=== PATIENT | female | born 1995 ===

== ENCOUNTER 2025-02-08 18:39 | Emergency (ER) | payer BC, SELFPAY ==
--- NOTE | 2025-02-08 | ECG_ITS ---
Test Reason : CHEST PAIN Blood Pressure : */* mmHG Vent. Rate : 84 BPM Atrial Rate : 84 BPM P-R Int : 132 ms QRS Dur : 82 ms QT Int : 360 ms P-R-T Axes : * 165 141 degrees QTcB Int : 425 ms Sinus rhythm with occasional Premature ventricular complexes Right axis deviation Abnormal ECG No previous ECGs available Referred By: Generic ED Physician Electronically Signed By: LILLY HILL MD
--- NOTE | ~2025-02-08 | XR_ITS ---
CLINICAL HISTORY: CP 2 view chest x-ray Comparison: None provided Findings: No consolidation or effusion. Normal size heart. No acute fracture. IMPRESSION: 1. No acute findings. This document has been electronically signed by: Kevin Ding MD on 02/08/2025 19:34:03
[2025-02-08 19:01] VITALS: BP 119/67; PULSE 82; RESP 18; TEMP 36.8; O2SAT 100; BMI 24.2
--- NOTE | 2025-02-08 19:01 | ED_ITS ---
HPI - Chest Pain General Chief Complaint: Chest Pain Stated Complaint: Chest pain X 3 days/Tachycardic Time Seen by Provider: 02/08/25 20:44 Source: patient Limitations: no limitations History of Present Illness ED Provider: Shoshana Palmer PA-C HPI narrative: 29-year-old female who is otherwise healthy presents with multiple complaints. Over the past 3 days, patient has been having substernal chest discomfort with radiation to the right upper extremity. Associated paresthesia of right upper and right lower extremity at times. Patient also has been having palpitations. Denies recent illness, nausea vomiting diarrhea or fever. Denies history of anxiety. Patient does have numerous emotional stressors. Related Data Allergies Allergy/AdvReac Type Severity Reaction Status Date / Time No Known Allergies (No Known Allergy Verified 02/08/25 19:05 Allergies*) Review of Systems 2 Review of Systems: Yes all other systems are reviewed and are negative Constitutional: Constitutional: Denies fatigue and Denies fever(s) Cardiovascular: Cardiovascular: Reports chest pain, Reports palpitations and Denies dyspnea Respiratory: Respiratory: Denies cough and Denies dyspnea Gastrointestinal: Gastrointestinal: Denies abdominal pain, Denies diarrhea, Denies nausea and Denies vomiting Psychiatric: Psychiatric: Reports anxiety Endocrine: Endocrine: Denies fatigue and Reports palpitations PMFSH Past Medical History Attestation statement: The following information was validated with the patient. Social History Social History Advance Directives: No Advance Directives Information Provided: No Physical Exam 2 Vital Signs: Vital Signs: Last Vital Signs Temp 97.9 F 02/08/25 19:44 Pulse 90 02/08/25 20:22 Resp 12 02/08/25 20:22 BP 127/67 02/08/25 20:22 Pulse Ox 100 02/08/25 20:22 O2 Del Method Room Air 02/08/25 20:22 BMI result Body Mass Index 24.2 Const: Other: Alert Orientation/consciousness: patient oriented x3 Resp: Effort & Inspection: normal respiratory effort Cardio: Other: normal peripheral perfusion Skin: Other: warm dry no rash Neuro: General: patient oriented x3, gait normal, no focal motor deficits and CN's II-XI intact bilaterally Psych: Other: cooperative, anxious Course Course Course Narrative: This is an RME: Additional HPI, ROS, PE not included below will be deferred to primary provider. RME assessment and note performed by: Ynes Diana PA-C This is a [id number]-female, with no known medical problems, who presents to the ER with complaints of chest pain x 3 days, palpitations and right arm numbness since today. Reports some shortness of breath. Reports that she moves her daughter over to her bed and unsure if this caused her pain. Pt well appearing under no acute distress. Plan: Labs, EKG, CXR, further ER eval needed Medical Decision Making Medical Decision Making MDM Narrative: 29-year-old female who is otherwise healthy presents with multiple complaints. Over the past 3 days, patient has been having substernal chest discomfort with radiation to the right upper extremity. Associated paresthesia of right upper and right lower extremity at times. Patient also has been having palpitations. Denies recent illness, nausea vomiting diarrhea or fever. Denies history of anxiety. Patient does have numerous emotional stressors. problem: Undiagnosed anxiety History: Per patient I have considered the following differential diagnoses: Anxiety/ panic attack, ACS, palpitations, dehydration, electrolyte abnormality, anemia Plan: ACS was considered, the patient does have chest discomfort, screening labs including cardiac enzymes EKG and chest x-ray obtained, to note her heart score is 0. In regard to the palpitations she is legitimately having PVCs, we will send with home care instructions. I do think her emotional stress is triggering her chest discomfort and paresthesia, she does appear to be an anxious individual. I have independently reviewed the following tests: Labs: no leukocytosis, not anemic, no electrolyte abnormality, troponin less than 2.7, not , viral panel negative EKG:Sinus rhythm rate 84 with PVCs, no ischemic changes, QTC 425 Chest x-ray: Findings: No consolidation or effusion. Normal size heart. No acute fracture. IMPRESSION: 1. No acute findings. Differential Diagnosis Differential Diagnoses: The differential diagnosis associated with the presentation includes see medical decision-making Admission/Observation Consideration of admission/observation: Escalation of care including admission/observation considered not applicable Lab Data MDM Lab Attestation statement: I reviewed the patient's lab results. 02/08/25 19:17 02/08/25 19:17 Labs: Lab Results 02/08/25 Range/Units 19:17 WBC 6.2 (4.8-10.8) X10*3/uL RBC 4.82 (4.20-5.50) X10*6/uL Hgb 9.5 L (12.0-16.0) g/dl Hct 32.2 L (37.0-47.0) % MCV 66.8 L (80.0-98.0) fL MCH 19.7 L (27.0-33.0) pg MCHC 29.5 L (31.0-35.0) g/dl RDW 18.8 H (11.0-16.0) % Plt Count 289 (160-400) X10*3/uL MPV 10.2 (9.4-12.3) fL Immature Gran % (Auto) 0.2 (0.0-0.4) % Neut % (Auto) 55.3 (45-73) % Lymph % (Auto) 32.6 (20-40) % [place] % (Auto) 7.9 (2-11) % Eos % (Auto) 3.4 (0-4) % Baso % (Auto) 0.6 (0-2) % Lymph # (Auto) 2.0 (1.2-4.9) X10*3/uL [place] # (Auto) 0.5 (0.1-1.2) X10*3/uL Eos # (Auto) 0.2 (0.0-0.4) X10*3/uL Baso # (Auto) 0.0 (0.0-0.2) X10*3/uL Abs Immat Gran (auto) 0.01 (0.00-0.03) X10*3/uL Absolute Neuts (auto) 3.4 (2.0-8.3) x10*3/uL Absolute Nucleated RBC 0.000 (0.0-0.012) X10*3/uL Nucleated RBC % (auto) 0.0 (0.0-0.2) /100WBC Sodium 138 (135-145) mmol/L Potassium 3.6 (3.3-5.1) mmol/L Chloride 109 H (96-108) mmol/L Carbon Dioxide 22 (22-29) mmol/L Anion Gap 11 L (12-20) BUN 9 (9-16) mg/dL Creatinine 0.62 (0.5-1.4) mg/dL Estim Creat Clear Calc 98.9 Estimated GFR > 60 Random Glucose 90 (60-115) mg/dL Calcium 9.0 (8.4-10.2) mg/dL Magnesium 2.0 (1.6-2.6) mg/dL Total Bilirubin 0.2 (0.0-1.0) mg/dL Direct Bilirubin < 0.2 (0.0-0.5) mg/dL AST 23 (5-31) U/L ALT 13 (0-31) U/L Alkaline Phosphatase 59 (39-117) U/L Troponin I High Sens < 2.7 (<3.5-17.0) ng/L Total Protein 7.4 (6.5-8.0) g/dL Albumin 4.5 (3.5-5.0) g/dL COVID-19 ([facility]) Negative (Negative) COVID-19 Clin Com See Note Influenza Type A ([facility]) Negative (Negative) Influenza Type B ([facility]) Negative (Negative) Influenza A & B Note See Note Independent Interpretation I performed an independent interpretation of an: EKG Radiology Impression Discussion of test interpretation with radiology: I have reviewed the radiologist's reading. Discharge Plan Discharge Clinical Impression: Atypical chest pain, Heart palpitations Patient Disposition: Home, Self-Care Instructions: Heart Palpitations (ED), Noncardiac Chest Pain (ED), Anxiety (ED) Additional Instructions: all of your screening labs including a cardiac enzymes were normal, you were tested for COVID and influenza the viral panel is negative. The chest x-ray is clear there were no concerning changes on the EKG. You are having extra beats called PVCs. See home care instructions. Make sure to avoid stimulants, alcohol can be a trigger, maintain proper hydration, drinking 96 oz of fluid a day. If your PVCs persist, and become more frequent, follow up with primary care, you will require a Holter monitor trial as an outpatient. Print Language: Romanian
[2025-02-08 19:23] LABS: Hematocrit 32.2 % (37.0-47.0); Hemoglobin 9.5 g/dl (12.0-16.0); Imm Gran Abs Auto 0.01 X10*3/uL (0.00-0.03); Imm Gran Pct Auto 0.2 % (0.0-0.4); Lymphocytes Absolute Auto 2.0 X10*3/uL (1.2-4.9); MANUAL DIFF FLAG NO; Mean Corpuscular HGB Conc 29.5 g/dl (31.0-35.0); Mean Corpuscular Hemoglobin 19.7 pg (27.0-33.0); Mean Corpuscular Volume 66.8 fL (80.0-98.0); NRBC Abs Auto 0.000 X10*3/uL (0.0-0.012); NRBC Pct Auto 0.0 /100WBC (0.0-0.2); Platelet Count 289 X10*3/uL (160-400); Red Blood Count 4.82 X10*6/uL (4.20-5.50); White Blood Count 6.2 X10*3/uL (4.8-10.8)
[2025-02-08 19:37] LABS: IDNOW Serial# 55D5AD1C
[2025-02-08 19:38] LABS: Influenza B2 Negative (Negative)
[2025-02-08 19:40] LABS: Alanine Aminotransferase 13 U/L (0-31); Albumin Level 4.5 g/dL (3.5-5.0); Alkaline Phosphatase 59 U/L (39-117); Anion Gap 11 (12-20); Aspartate Amino Transferase 23 U/L (5-31); Blood Urea Nitrogen 9 mg/dL (9-16); Calcium 9.0 mg/dL (8.4-10.2); Carbon Dioxide 22 mmol/L (22-29); Chloride 109 mmol/L (96-108); Creatinine Clr Calc Pharmacy 98.9; Estimated Glomerular Filt Rate > 60; Magnesium 2.0 mg/dL (1.6-2.6); Potassium 3.6 mmol/L (3.3-5.1); Sodium 138 mmol/L (135-145); Total Protein 7.4 g/dL (6.5-8.0)
[2025-02-08 19:42] LABS: COVID-19 Test Negative (Negative); IDNOW Serial# 58CA691E
[2025-02-08 19:44] VITALS: BP 127/67; PULSE 80; RESP 16; TEMP 36.6; O2SAT 100
[2025-02-08 19:50] LABS: Troponin-I High Sensitivity < 2.7 ng/L (<3.5-17.0)
[2025-02-08 20:22] VITALS: BP 127/67; PULSE 90; RESP 12; O2SAT 100
[2025-02-08 22:11] VITALS: BP 116/62; PULSE 84; RESP 16; TEMP 36.8; O2SAT 97
--- NOTE | 2025-02-08 22:16 | PC.NURSE ---
reviewed discharge instructions with pt. pt verbalized understanding, no sign of distress. Notified Primary nurse.
[2025-02-08 22:17] VITALS: BP 116/62; PULSE 84; RESP 16; TEMP 36.8; O2SAT 97
== END 2025-02-08 22:18 | disposition home or self-care (01) ==
PROVIDERS: Physician Assistant Medical; Emergency Provider Emergency Medicine
DX: R07.89 Other chest pain (principal); R00.2 Palpitations
CPT/HCPCS: 71046; 80048; 80076; 83735; 84484; 85025; 87502; 87635; 93005; 99283; 99285

== ENCOUNTER → 2025-02-08 18:44 | Outpatient (BNV) | payer BC, SELFPAY | PROVIDERS: Emergency Provider Emergency Medicine; Visit Provider Internal Medicine Cardiovascular Disease | DX: I49.3 Ventricular premature depolarization (principal) | CPT/HCPCS: 93010 ==

== ENCOUNTER → 2025-02-08 19:03 | Outpatient (BNV) | payer BC, SELFPAY | PROVIDERS: Visit Provider Radiology Diagnostic Radiology | DX: R07.9 Chest pain, unspecified (principal) | CPT/HCPCS: 71046 ==

== ENCOUNTER 2025-02-11 17:00 | Emergency (ER) | payer BC, SELFPAY ==
--- NOTE | ~2025-02-11 | XR_ITS ---
CLINICAL HISTORY: chest pain 2 views of the chest. Comparison 02/08/2025. Findings: Heart size is normal. There is no consolidation. No pleural effusion is seen. Impression: No consolidation. This document has been electronically signed by: Clifton Stone MD on 02/11/2025 17:37:06
--- NOTE | 2025-02-11 17:02 | ECG_ITS ---
Test Reason : CP Blood Pressure : */* mmHG Vent. Rate : 77 BPM Atrial Rate : 77 BPM P-R Int : 134 ms QRS Dur : 92 ms QT Int : 358 ms P-R-T Axes : 24 12 28 degrees QTcB Int : 405 ms Sinus rhythm with sinus arrhythmia with occasional Premature ventricular complexes Otherwise normal ECG When compared with ECG of 08-Feb-2025 18:44, QRS axis Shifted left T wave inversion no longer evident in Lateral leads Referred By: Leanne Jung Electronically Signed By: Slade Hoyt
[2025-02-11 17:10] VITALS: BP 134/69; PULSE 88; RESP 16; TEMP 36.6; O2SAT 100; BMI 21.9
--- NOTE | 2025-02-11 17:13 | ED_ITS ---
HPI - General Adult General Chief complaint: Chest Pain Stated complaint: chect pain Time Seen by Provider: 02/11/25 20:20 Source: patient, RN notes reviewed and old records reviewed Mode of arrival: ambulatory Limitations: no limitations History of Present Illness ED Provider: Joseph ALMANZAR narrative: 30-year-old female presents for evaluation of continued chest pain and palpitations. She was seen here 3 days ago for similar complaint. She had labs, chest x-ray, EKG. She was ultimately discharged home with instructions to rest. She did have notable PVCs on her EKG She has no medical history. She reports only mild anxiety. She states that she continues to have intermittent stabbing pains on the right side of her chest that now radiates to left side of her chest pain She also occasionally has pain to her extremities She additionally reports occasional pains in the back of her head pain Denies any fevers, chills, cough, shortness of breath pain She has some nausea with no vomiting. She has no other complaints or concerns at this time Related Data Allergies Allergy/AdvReac Type Severity Reaction Status Date / Time No Known Allergies (No Known Allergy Verified 02/11/25 17:14 Allergies*) Review of Systems 2 Constitutional: Constitutional: Denies body ache(s), Denies chills, Denies fever(s) and Denies headache(s) Eyes: Eyes: Denies blind spots and Denies blurry vision ENT: Denies vertigo, Denies dizziness and Denies headache(s) Cardiovascular: Cardiovascular: Reports chest pain and Denies dyspnea on exertion Respiratory: Respiratory: Denies cough and Denies dyspnea on exertion Gastrointestinal: Gastrointestinal: Denies abdominal pain, Denies nausea and Denies vomiting Musculoskeletal: Musculoskeletal: Denies back pain, Denies numbness, Denies stiffness and Denies tingling Integumentary/Breasts: Skin/Breast: Denies rash Neurologic: Denies vertigo, Denies dizziness, Denies headache(s), Denies numbness and Denies tingling Psychiatric: Psychiatric: Denies anxiety PMFSH Social History Social History Advance Directives: No Advance Directives Information Provided: No Do you have a plan to hurt others: No Plan Physical Exam ED Vital Signs: Vital Signs - 24 hr 02/11/25 17:10 Temperature 97.9 F Pulse Rate 88 Respiratory Rate 16 Blood Pressure 134/69 Pulse Oximetry 100 Oxygen Delivery Method Room Air BMI result Body Mass Index 21.9 Const General: healthy appearing, comfortable, no acute distress, alert and awake Nutritional Appearance: well nourished Orientation/consciousness: patient oriented x3 HENMT Head: Yes normocephalic and Yes atraumatic Eyes Eyelids: Yes eyelids normal Conjunctivae: conjunctivae normal Sclerae: sclerae normal Corneas: corneas normal Pupils: Equal, round and reactive pupils present EOM: EOMs intact bilaterally Neck Neck: Yes full ROM Resp Effort & Inspection: normal respiratory effort, able to speak in complete sentences, no audible wheezes and not labored Auscultation: clear to auscultation bilaterally Cardio Rate: regular rate Rhythm: regular rhythm GI Inspection: No distended Palpation (GI): Soft to palpation, not firm, nontender, no guarding and not rigid Skin General skin exam: elasticity normal Neuro General: patient oriented x3 Cranial nerves: Yes Equal, round and reactive pupils present and Yes Bilaterally intact EOM present Cognition (Neuro): normal cognition Extrem Other: Moving all extremities well without any obvious deformities Course Course Course Narrative: Rapid medical examination performed in triage by Leanne Jung PA-C. Patient is a 30 year old assigned female at presenting to the emergency department with right sided chest pain and nausea. Detailed physical exam and review of systems are deferred to the bandage winding machine operator. EKG, labs, imaging, and swabs ordered. Patient placed back in the waiting room pending room availability and results. Medical Decision Making Medical Decision Making MDM Narrative: 30-year-old female presents for evaluation of continued chest pain and palpitations. The patient's vital signs are stable, she is not hypoxic or tachycardic, EKG is nonischemic. She still does have a PVC noted. She is not . She has a mild anemia consistent with her baseline. Her hemoglobin today is 9.3 and was 9.53 days ago. This is a microcytic anemia and likely due to heavy menstrual flow. She has no leukocytosis or evidence of infectious process. Chemistries are within normal limits, troponin is again negative. The patient rules out for ACS with a negative troponin and nonischemic EKG. She has a heart score of 0. She has an extended with a low risk for pulmonary embolism due to her PERC score being 0. Her pain may be related to anxiety. She could have some gastritis as she reports having had this when she was . The patient be discharged with a Cardiology referral, she may benefit from a Holter monitor. She is stable for discharge however. Chest x-ray is also clear without evidence of pneumonia, pleural effusion or cardiomegaly Differential Diagnosis Differential Diagnoses: The differential diagnosis associated with the presentation includes Chest pain Palpitations ACS PE CHF Pneumonia Lab Data MDM Lab Attestation statement: I reviewed the patient's lab results. As above 02/11/25 17:26 02/11/25 17:26 Labs: Lab Results 02/11/25 Range/Units 17:26 WBC 6.8 (4.8-10.8) X10*3/uL RBC 4.77 (4.20-5.50) X10*6/uL Hgb 9.3 L (12.0-16.0) g/dl Hct 32.6 L (37.0-47.0) % MCV 68.3 L (80.0-98.0) fL MCH 19.5 L (27.0-33.0) pg MCHC 28.5 L (31.0-35.0) g/dl RDW 18.6 H (11.0-16.0) % Plt Count 242 (160-400) X10*3/uL MPV 10.8 (9.4-12.3) fL Immature Gran % (Auto) 0.1 (0.0-0.4) % Neut % (Auto) 66.7 (45-73) % Lymph % (Auto) 24.3 (20-40) % [place] % (Auto) 6.2 (2-11) % Eos % (Auto) 1.8 (0-4) % Baso % (Auto) 0.9 (0-2) % Lymph # (Auto) 1.7 (1.2-4.9) X10*3/uL [place] # (Auto) 0.4 (0.1-1.2) X10*3/uL Eos # (Auto) 0.1 (0.0-0.4) X10*3/uL Baso # (Auto) 0.1 (0.0-0.2) X10*3/uL Abs Immat Gran (auto) 0.01 (0.00-0.03) X10*3/uL Absolute Neuts (auto) 4.6 (2.0-8.3) x10*3/uL Absolute Nucleated RBC 0.000 (0.0-0.012) X10*3/uL Nucleated RBC % (auto) 0.0 (0.0-0.2) /100WBC Smear Tech's Comments VERIFIED PT 12.1 (10.9-12.4) SEC INR 1.1 (0.9-1.1) Sodium 140 (135-145) mmol/L Potassium 3.7 (3.3-5.1) mmol/L Chloride 108 (96-108) mmol/L Carbon Dioxide 25 (22-29) mmol/L Anion Gap 11 L (12-20) BUN 12 (9-16) mg/dL Creatinine 0.60 (0.5-1.4) mg/dL Estim Creat Clear Calc 91.8 Estimated GFR > 60 Random Glucose 99 (60-115) mg/dL Calcium 9.0 (8.4-10.2) mg/dL Magnesium 1.8 (1.6-2.6) mg/dL Total Bilirubin 0.4 (0.0-1.0) mg/dL AST 19 (5-31) U/L ALT 14 (0-31) U/L Alkaline Phosphatase 57 (39-117) U/L Troponin I High Sens < 2.7 (<3.5-17.0) ng/L Total Protein 7.5 (6.5-8.0) g/dL Albumin 4.6 (3.5-5.0) g/dL Beta HCG, Quant < 2 mIU/mL Independent Interpretation I performed an independent interpretation of an: EKG (Sinus rhythm with PVC. No ST segment elevation or depression) and Plain X-Ray Interpretation: Agree with Radiology interpretation Radiology Impression Discussion of test interpretation with radiology: I have reviewed the radiologist's reading. Radiologist Impression: CLINICAL HISTORY: chest pain 2 views of the chest. Comparison 02/08/2025. Findings: Heart size is normal. There is no consolidation. No pleural effusion is seen. Impression: No consolidation. This document has been electronically signed by: Clifton Stone MD on 02/11/2025 17:37:06 Discharge Plan Discharge Clinical Impression: Chest pain Patient Disposition: Home, Self-Care Instructions: Chest Pain (ED) Additional Instructions: Your workup in the ER today was reassuring. This includes your EKG, repeat chest x-ray and labs. You did not have a heart attack. You did still have a PVC or premature beat on your EKG. I recommend that you follow up with Cardiology. You may benefit from an outpatient Holter monitor or additional cardiac testing You may use ibuprofen or Tylenol for your pain. Follow up with your primary doctor Referrals: [facility] [Provider Group] Referral Note: palpitations, chest pain Print Language: Polish
[2025-02-11 17:35] LABS: Hemoglobin 9.3 g/dl (12.0-16.0); NRBC Abs Auto 0.000 X10*3/uL (0.0-0.012); NRBC Pct Auto 0.0 /100WBC (0.0-0.2); SCAN SMEAR FLAG 1
[2025-02-11 17:37] LABS: Hematocrit 32.6 % (37.0-47.0); Imm Gran Abs Auto 0.01 X10*3/uL (0.00-0.03); Imm Gran Pct Auto 0.1 % (0.0-0.4); Lymphocytes Absolute Auto 1.7 X10*3/uL (1.2-4.9); MANUAL DIFF FLAG SCAN; Mean Corpuscular HGB Conc 28.5 g/dl (31.0-35.0); Mean Corpuscular Hemoglobin 19.5 pg (27.0-33.0); Mean Corpuscular Volume 68.3 fL (80.0-98.0); Platelet Count 242 X10*3/uL (160-400); Red Blood Count 4.77 X10*6/uL (4.20-5.50); White Blood Count 6.8 X10*3/uL (4.8-10.8)
[2025-02-11 17:39] LABS: INTERNATIONAL NORM RATIO 1.1 (0.9-1.1); Prothrombin Time 12.1 SEC (10.9-12.4)
[2025-02-11 17:54] LABS: Alanine Aminotransferase 14 U/L (0-31); Albumin Level 4.6 g/dL (3.5-5.0); Alkaline Phosphatase 57 U/L (39-117); Anion Gap 11 (12-20); Aspartate Amino Transferase 19 U/L (5-31); Blood Urea Nitrogen 12 mg/dL (9-16); Calcium 9.0 mg/dL (8.4-10.2); Carbon Dioxide 25 mmol/L (22-29); Chloride 108 mmol/L (96-108); Creatinine Clr Calc Pharmacy 91.8; Estimated Glomerular Filt Rate > 60; Magnesium 1.8 mg/dL (1.6-2.6); Potassium 3.7 mmol/L (3.3-5.1); Sodium 140 mmol/L (135-145); Total Protein 7.5 g/dL (6.5-8.0)
[2025-02-11 17:56] LABS: Troponin-I High Sensitivity < 2.7 ng/L (<3.5-17.0)
[2025-02-11 18:00] LABS: PLT ABN DIST 1
--- OUTSIDE RECORDS SUMMARY | 2025-02-11 20:45 | XMS_ITS | Clinical Summary ---
Author Organization [facility] Address [address] [place] [address] Care Team Providers Care Gas Meter Reader Name Role Phone Stella Flaherty MD Primary Care Provider [phone] Surgical History Surgery Date Site/Laterality Comments SECTION 02/25/2019 PROCEDURE: HISTORICAL DELIVERY; COMMENT: [facility]; [place], [place] Medical History Medical History Date Comments Anxiety and depression DX:Anxiet y and depression Family History Medical History Relation Name Comments No Known Problems Father Heart attack Maternal Grandfather Arthritis Mother Hypertension Mother No Known Problems Sister Other: Step-son Son Chris Relation Name Status Comments Daughter Nae Alive Father Alive Maternal Grandfather Alive Maternal Grandmother Alive Mother Alive Paternal Grandfather Paternal Grandmother Alive Sister Alive Son Chris Alive Social History Tobacco Use Types Packs/Day Years Used Date Smoking Tobacco: Never Smokeless Tobacco: Never Alcohol Use Standard Drinks/Week Comments No 0 (1 standard drink = 0.6 oz pur e alcohol) Comments Unknown Sex and Gender Information Value Date Recorded Sex Assigned at Not on file Legal Sex Female 3:54 PM EST Gender Identity Not on file Sexual Orientation Not on file Obstetrics History Last Filed Vital Signs Vital Sign Reading Time Taken Comments Blood Pressure 96/59 10/29/2021 9:01 AM EDT Pulse 90 10/29/2021 9:01 AM EDT Temperature - - Respiratory Rate - - Oxygen Saturation - - Inhaled Oxygen Concentration - - Weight 59 kg (130 lb) 10/29/2021 9:01 AM EDT Height 149.9 cm (4' 11 ) 10/29/2021 9:01 AM EDT Body Mass Index 26.26 10/29/2021 9:01 AM EDT Plan of Treatment Health Maintenance Due Date Last Done Comments Hepatitis B Vaccines (1 of 3 - 19+ 3-dose series) 02/11/2012 HPV Vaccines (1 - 3-dose SCD M series) 02/11/2020 HIV Screening 04/10/2022 Hepatitis C Screening 04/10/2022 Social Influencers of Health Screening 04/10/2022 Cervical Cancer Screening: P ap Smear 12/02/2023 12/01/2020, 03/30/2018 Depression Screening 05/02/2024 COVID-19 Vaccine (2 - 2024-2 6 season) 2024 10/29/2020 Influenza Vaccine (#1) 2024 03/03/2018 DTaP,Tdap,and Td Vaccines (3 - Td or Tdap) 03/31/2031 03/31/2021, 12/19/2018 RSV Immunization Adult Patients (1 - 1-dose 75+ series) 02/11/2068 HIB Vaccines Aged Out No longer eligi ble based on patient's age to complete this topic Hepatitis A Vaccines Aged Out No long er eligible based on patient's age to complete this topic IPV Vaccines Aged Out No longer eligi ble based on patient's age to complete this topic MMR Vaccines Aged Out No longer eligi ble based on patient's age to complete this topic Meningococcal ACWY Vaccine Aged Out N o longer eligible based on patient's age to complete this topic Meningococcal B Vaccine Aged Out No l onger eligible based on patient's age to complete this topic Pneumococcal Vaccine: Pediatrics (0 to 5 Years) and At-Risk Patients (6 to 49 Years) Aged Out No longer eligible b ased on patient's age to complete this topic RSV Immunization Patients Under 20 months Aged Out No longer eligible b ased on patient's age to complete this topic Varicella Vaccines Aged Out No longer eligible based on patient's age to complete this topic Procedures Procedure Name Priority Date/Time Associated Diagnosis Comments PAP SMEAR Routine 12/01/2020 from Last 3 Months or Most Recently Relevant to Health Maintenance Results * Pap smear (12/01/2020) 12/01/2020 Narrative HISTORICAL TESTING LAB RESULTING AGENCY - 12/15/2020 9:35 AM EDT [id number] THINPREP PAP AND CELL BLOCK: NEGATIVE FOR SQUAMOUS INTRAEPITHELIAL LESION AND MALIGNANCY . MARGARET RIDLEY , JAMIE(ASCP) (CASE SCREENED 12 09 2020) MADELYN SCHAFFER M.D. , PATHOLOGIST (CASE ELECTRONICALLY SIGNED 12 10 2020) ADEQUACY: SATISFACTORY ENDOCERVICAL/TRANSFORMATION ZONE COMPONENT ABSENT. SOURCE: THINPREP PAP HPV IF ASCUS, MANUAL CLINICAL INFORMATION: HPV IF DIAGNOSIS OF ASCUS. LMP 09/07/20 , CELL BLOCK 12/02/20 Z12.4 Lucila Silverman CN LAB CYTOLOGY ORDERABLES Final Result HISTORICAL TESTING LAB RESULTING AGENCY from Last 3 Months or Most Recently Relevant to Health Maintenance Care Teams Gas Meter Reader Relationship Specialty Start Date End Date Stella Flaherty MD PCP - General 05/05/22
--- OUTSIDE RECORDS SUMMARY | 2025-02-11 20:45 | XMS_ITS | Clinical Summary ---
Author Organization [facility] Address [address] [address] Phone Care Team Providers Care Fusing Machine Operator Name Role Phone Pcp, Unknown Primary Care Provider Unavailabl e Allergies No known active allergies Medications No known medications Active Problems No known active problems Social History Tobacco Use Types Packs/Day Years Used Date Smoking Tobacco: Never Assessed Education Answer Date Recorded Are you interested in more education? Not on rosa e 12/01/2023 Are you concerned about learning? Not on file 12/01/2023 No 12/01/2023 No 12/01/2023 Digital Access Answer Date Recorded No 12/01/2023 No 12/01/2023 Reliable internet access at home? Not on file 12/01/2023 Device with a working camera? Not on file Comments Unknown Sex and Gender Information Value Date Recorded Sex Assigned at Not on file Legal Sex Female 8:24 AM EDT Gender Identity Not on file Sexual Orientation Not on file Last Filed Vital Signs Vital Sign Reading Time Taken Comments Blood Pressure 119/77 12/01/2023 10:18 AM EDT Pulse 72 12/01/2023 10:18 AM EDT Temperature 36.8 C (98.3 F) 12/01/2023 10:18 AM EDT Respiratory Rate 18 12/01/2023 10:18 AM EDT Oxygen Saturation 100% 12/01/2023 10:18 AM EDT Inhaled Oxygen Concentration - - Weight - - Height - - Body Mass Index - - Plan of Treatment Health Maintenance Due Date Last Done Comments DEPRESSION SCREENING 2005 SMOKING Hx and SMOKELESS TOBACCO SCREENING 2006 HEPATITIS C SCREENING 2011 HIV ONE-TIME SCREENING (18-6 5 YEARS) 2011 PAP SMEAR 12/02/2023 12/01/2020 INFLUENZA VACCINE (#1) 2024 COVID-19 VACCINE (2024-2 6 season) 2024 Adult Td,Tdap Booster 03/31/2031 03/31/2021 , 12/19/2018 HEPATITIS A VACCINES Aged Out No long er eligible based on patient's age to complete this topic HIB VACCINES Aged Out No longer eligi ble based on patient's age to complete this topic MENINGOCOCCAL VACCINES (ACWY) Aged Out No longer eligible based on patient's age to complete this topic MENINGOCOCCAL VACCINES (B) Aged Out N o longer eligible based on patient's age to complete this topic PNEUMOCOCCAL VACCINES (0-49 years) Aged Out No longer eligible b ased on patient's age to complete this topic Medical Devices Not on file Insurance [facility] [place] [address] [address] [place] [address] [place] [address] Member Subscriber Plan / Payer (Ef fective 2023-) Name:Virgie Lopez Relation to Subscriber:Self Name:Virgie Lopez Payer ID:[id number] (NAIC) Type:HMO Address: [facility] [id number] [place] [id number] Care Teams Fusing Machine Operator Relationship Specialty Start Date End Date Pcp, Unknown PCP - General 12/01/23 Additional Source Comments The information contained in this document represents components of the legal health record. It is not the complete legal health record.[facility]
[2025-02-11 21:12] VITALS: BP 110/70; PULSE 74; RESP 16; TEMP 36.8; O2SAT 96
[2025-02-11 21:13] VITALS: BP 110/70; PULSE 74; RESP 16; TEMP 36.8; O2SAT 96
== END 2025-02-11 21:15 | disposition home or self-care (01) ==
PROVIDERS: Physician Assistant Medical; Emergency Provider Emergency Medicine Emergency Medical Services
DX: R07.9 Chest pain, unspecified (principal); R00.2 Palpitations; I49.3 Ventricular premature depolarization; D50.9 Iron deficiency anemia, unspecified
CPT/HCPCS: 36415; 71046; 80053; 83735; 84484; 84702; 85025; 85610; 93005; 99283; 99284

== ENCOUNTER → 2025-02-11 17:02 | Outpatient (BNV) | payer BC, SELFPAY | PROVIDERS: Emergency Provider Emergency Medicine Emergency Medical Services; Visit Provider Internal Medicine Cardiovascular Disease | DX: I49.3 Ventricular premature depolarization (principal) | CPT/HCPCS: 93010 ==

== ENCOUNTER → 2025-02-11 17:14 | Outpatient (BNV) | payer BC, SELFPAY | PROVIDERS: Visit Provider Radiology Diagnostic Radiology | DX: R07.9 Chest pain, unspecified (principal) | CPT/HCPCS: 71046 ==

== ENCOUNTER 2025-02-15 09:02 | Outpatient (AMB) | payer BC, SELFPAY ==
--- NOTE | 2025-02-15 09:09 | MHC.PC.OV ---
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 Accompanied by: Self / Same As Patient Allergies No Known Allergies (No Known Allergies*) Allergy (Verified 02/15/25 09:10) Medication List - Last Reconciled 02/15/25 by Singh Live MD No Known Home Meds Tobacco use date assessed: 02/15/25 Dental Screening Dental Screen Date: 02/15/25 Did you have a dental visit in the last 12 months?: No Did you have a dental problem in the last 6 months where you did not have access to dental care?: No Was dental information given to patient?: No HPI HPI Comments History of Present Illness Details The patient is a 30-year-old female presenting to [facility]. The patient reports symptoms of chest pain in the past. Associated symptoms included right arm numbness, dyspnea, dizziness, and palpitations, prompting two ER visits where cardiac causes were ruled out. The patient has a history of anemia, with a current hemoglobin level of 9.5 g/dL, likely exacerbated by heavy menstrual bleeding. She reports fatigue, tingling sensations, and lightheadedness. The patient has experienced significant life changes, including a divorce and raising two children, contributing to past episodes of depression and anxiety. She currently manages stress with therapy and reports a generally stable mood. Dietary habits include irregular meals and inadequate hydration, potentially impacting her anemia and overall health. She denies any gastrointestinal issues outside of menstrual-related bloating. Questionnaire PHQ-9 Over the last 2 weeks, how often have you been bothered by any of the following problems? 1. Little interest or pleasure in doing things: not at all 2. Feeling down, depressed, or hopeless: not at all 3. Trouble falling or staying asleep, or sleeping too much: not at all 4. Feeling tired or having little energy: several days 5. Poor appetite or overeating: not at all 6. Feeling bad about yourself - or that you are a failure or have let yourself or your family down: not at all 7. Trouble concentrating on things, such as reading the newspaper or watching television: not at all 8. Moving or speaking so slowly that other people could have noticed. Or the opposite - being so fidgety or restless that you have been moving around a lot more than usual: not at all 9. Thoughts that you would be better off or of hurting yourself in some way: not at all Total score: 1 Depression Screening Interpretation: Negative Depression Screening Done: Yes Source: Developed by Drs. Tobi Wang, Keily Altamirano, Marcial Yin and colleagues, with an educational luis fernando from [employer]. Thrive Questionnaire I am a: Patient What is your living situation today?: I have a steady place to live Within the past 12 months, did the food you bought not last and you didn't have the money to get more?: Never true Within the past 12 months, did you worry whether your food would run out before you got money to buy more?: Sometimes True Do you have trouble paying for medicines?: No Do you have trouble getting transportation to medical appointments?: No Do you have trouble paying your heating and electricity bill?: No Do you have trouble taking care of your child, family member or friend?: No Do you have trouble with day-to-day activities such as bathing, preparing meals, shopping, managing finances, etc.?: No Are you currently unemployed and looking for a job?: No Are you interested in more education?: No Please select the resources that you would like help with: None Currently or been in a relationship where the following occur: I choose not to answer THRIVE Score: 1 AUDIT C Alcohol Use Questionnaire (AUDIT-C) 1. How often do you have a drink containing alcohol?: Never Total Score: 0 FELIBERTO-7 AMB Questionnaire FELIBERTO-7 Feeling nervous, anxious, or on edge: 0 = Not at all Not being able to stop or control worryin = Not at all Worrying too much about different things: 0 = Not at all Trouble relaxin = Not at all Being so restless that it is hard to sit still: 0 = Not at all Becoming easily annoyed or irritable: 0 = Not at all Feeling afraid as if something awful might happen: 0 = Not at all Total FELIBERTO-7 score (0-4 normal; 5-9 mild; 10-14 moderate; 15-21 severe): 0 Source: Developed by Drs. Tobi Wang, Keily Altamirano, Marcial Yin and colleagues, with an educational luis fernando from [employer]. Review of Systems Const Details: Positives besides what was mentioned in HPI are in BOLD Constitutional: No Weight Change, No Fever, No Chills, No Night Sweats, No Fatigue, No Malaise ENT/Mouth: No Hearing Changes, No Ear Pain, No Nasal Congestion, No Sinus Pain, No Hoarseness, No sore throat, No Rhinorrhea, No Swallowing Difficulty Eyes: No Eye Pain, No Swelling, No Redness, No Foreign Body, No Discharge, No Vision Changes Cardiovascular: No Chest Pain, No SOB, No PND, No Dyspnea on Exertion, No Orthopnea, No Claudication, No Edema, No Palpitations Respiratory: No Cough, No Sputum, No Wheezing, No Smoke Exposure, No Dyspnea Gastrointestinal: No Nausea, No Vomiting, No Diarrhea, No Constipation, No Pain, No Heartburn, No Anorexia, No Dysphagia, No Hematochezia, No Melena, No Flatulence, No Jaundice Genitourinary: No Dysmenorrhea, No DUB, No Dyspareunia, No Dysuria, No Urinary Frequency, No Hematuria, No Urinary Incontinence, No Urgency, No Flank Pain, No Urinary Flow Changes, No Hesitancy Musculoskeletal: No Arthralgias, No Myalgias, No Joint Swelling, No Joint Stiffness, No Back Pain, No Neck Pain, No Injury History Skin: No Skin Lesions, No Pruritis, No Hair Changes, No Breast/Skin Changes, No Nipple Discharge Neuro: No Weakness, No Numbness, No Paresthesias, No Loss of Consciousness, No Syncope, No Dizziness, No Headache, No Coordination Changes, No Recent Falls Psych: No Anxiety/Panic, No Depression, No Insomnia, No Personality Changes, No Delusions, No Rumination, No SI/HI/AH/VH, No Social Issues, No Memory Changes, No Violence/Abuse Hx., No Eating Concerns Heme/Lymph: No Bruising, No Bleeding, No Transfusions History, No Lymphadenopathy Endocrine: No Polyuria, No Polydipsia, No Temperature Intolerance Physical exam (Primary Care) Vital Signs: Last Vital Signs Temp 97.3 F 02/15/25 09:10 Pulse 83 10/17/25 09:10 Resp 18 02/15/25 09:10 BP 128/66 02/15/25 09:10 Pulse Ox 95 02/15/25 09:10 Oxygen Delivery Method Room Air 02/15/25 09:10 BMI result Body Mass Index 23.0 Tobacco/Smoking Status: Tobacco use Status Tobacco use date assessed 02/15/25 02/15/25 09:17 PHQ-9: PHQ-9 Score PHQ-9: Total score 1 02/15/25 09:17 Depression Screening Interpretation: Negative Currently or been in a relationship where the following occur: I choose not to answer Const Other: Pertinent findings are in BOLD GENERAL APPEARANCE NAD, activity normal for age, well developed/ well nourished, no cyanosis, pallor, or diaphoresis. EYES lids/conjunctiva normal. EARS/NOSE/THROAT Mucous membranes moist, nares normal, lips/teeth normal uvula midline without oral pharyngeal erythema, exudate or swelling TMs normal bilaterally. No lymphangitis/lymphedema. HEAD/NECK normocephalic atraumatic, no facial trauma, neck is supple. RESPIRATORY respiratory effort normal, speaks in full sentences, no tripod position, no accessory muscle use. Lungs clear to auscultation without rhonchi, wheezes, rales CARDIAC Regular rate and rhythm, no edema. ABDOMINAL Soft, ND/NT. No evidence of fluid wave. No pulsatile masses on exam, rebound tenderness, Seay sign or pain over Mcburney's point. MUSCLES/EXTREMITIES No abnormal range of motion, no swelling. SKIN Warm, pink and dry. No rashes, dermatoses, petechiae or lesions. NEUROLOGICAL Speech is clear and appropriate. Normal level of consciousness. Gait and coordination are normal. 5/5 strength in all extremities. PSYCH Normal mood and affect. Judgement/competence is appropriate Coding Level of Care Code New Pt Level 4 (21539) New Pt Prev Care 18-39yr(35472 Diagnoses Atypical chest pain R07.89 Healthcare maintenance Z00.00 Anemia, unspecified type D64.9 Anemia type: unspecified type Time Spent (min) 30 Assessment & Plan Assessment & Plan (1) Atypical chest pain: Code(s): R07.89 - Other chest pain Category: Medical Plan: Cardiac causes were ruled out during ED visit. ED recommended the patient to see cardiology for PVC. I explained to the patient that PVC are less likely to be causing her symptoms. Cardiology referral placed since it was recommended by ED. (2) Healthcare maintenance: Code(s): Z00.00 - Encounter for general adult medical examination without abnormal findings Category: Medical Plan: CBC, CMP, Lipid panel, A1C, TSH w T4, vit D. Ordered today. Shingles 2 doses when >50 yo. NI. COVID: two doses. Completed in the past. Tdap: done in 2020. due in 2030. Flu vaccine: Declined. Colonoscopy: 45-75. due at 45. AAA: 65 -75. NI. CT lun - 80. NI. HPV: Rferral. HIV: Orderd today. HBV: Ordered today. HCV: Ordered today. Dexa: NI. Mammogram: Due at 40. (3) Anemia: Code(s): D64.9 - Anemia, unspecified Category: Medical Qualifiers: Anemia type: unspecified type Qualified Code(s): D64.9 - Anemia, unspecified Plan: - Anemia W-U: Iron profile, MMA, Homocystein, Folic acid and B12, retic count. - Referral to OBGYN for further evaluation and management of heavy menstrual bleeding - Recommended increasing intake of iron rich food such as spinach and red meat. Advised patient to check online for Iron rich food. - Patient denies any blood in the stool or in the urine. Plan I discussed with the patient the likelihood that her symptoms are related to anemia, potentially due to iron deficiency from heavy menstrual bleeding. I recommended an anemia workup and referral to an OBGYN for further evaluation. We also discussed the cardiology referral. Orders: Orders Vitamin D 25-OH (D2 and D3) Today D64.9 - Anemia, unspecified, Z00.00 - Encounter for general adult medical examination without abnormal findings TSH reflex Free T4 Today D64.9 - Anemia, unspecified, Z00.00 - Encounter for general adult medical examination without abnormal findings HIV Ab/Ag Today D64.9 - Anemia, unspecified, Z00.00 - Encounter for general adult medical examination without abnormal findings Hepatitis C Antibody Reflex Today D64.9 - Anemia, unspecified, Z00.00 - Encounter for general adult medical examination without abnormal findings Hepatitis B Surface Antibody Today D64.9 - Anemia, unspecified, Z00.00 - Encounter for general adult medical examination without abnormal findings Lipid Panel Today D64.9 - Anemia, unspecified, Z00.00 - Encounter for general adult medical examination without abnormal findings Vitamin B12 and Folate Today D64.9 - Anemia, unspecified, Z00.00 - Encounter for general adult medical examination without abnormal findings IRON PROFILE Today D64.9 - Anemia, unspecified, Z00.00 - Encounter for general adult medical examination without abnormal findings Hepatitis B Surface Antigen Today D64.9 - Anemia, unspecified, Z00.00 - Encounter for general adult medical examination without abnormal findings Hemoglobin A1c Today D64.9 - Anemia, unspecified, Z00.00 - Encounter for general adult medical examination without abnormal findings Methylmalonic Acid Today D64.9 - Anemia, unspecified, Z00.00 - Encounter for general adult medical examination without abnormal findings Homocysteine Today D64.9 - Anemia, unspecified, Z00.00 - Encounter for general adult medical examination without abnormal findings Reticulocyte Count Today D64.9 - Anemia, unspecified Referrals Cardiology Referral R07.89 - Other chest pain WORKERS COMPENSATION ANALYST Referral D64.9 - Anemia, unspecified, Z00.00 - Encounter for general adult medical examination without abnormal findings
[2025-02-15 09:10] VITALS: BP 128/66; PULSE 83; RESP 18; TEMP 36.3; O2SAT 95; BMI 23.0
--- OUTSIDE RECORDS SUMMARY | 2025-02-15 09:45 | XMS_ITS | Clinical Summary ---
Author Organization [facility] Address [address] [address] Phone Care Team Providers Care Supervisor Home Restoration Service Name Role Phone Pcp, Unknown Primary Care [...] topic Medical Devices Not on file Insurance [facility] [place] [address] [place] [address] [place] [address] Member Subscriber Plan / Payer (Ef fective 2023-) Name:Virgie Lopez Relation to Subscriber:Self Name:Virgie Lopez Payer ID:[id number] (NAIC) Type:HMO Address: [facility] [address] [place] [id number] Care Teams Supervisor Home Restoration Service Relationship Specialty Start Date End Date Pcp, Unknown PCP - General 12/01/23 Additional Source Comments The information contained in this document represents components of the legal health record. It is not the complete legal health record.[facility]
--- OUTSIDE RECORDS SUMMARY | 2025-02-15 09:45 | XMS_ITS | Clinical Summary ---
Author Organization [facility] Address [address] [place] [address] Care Team Providers Care Distance Learning Unit Leader Name Role Phone Stella Flaherty MD Primary Care Provider [phone] Surgical History Surgery Date Site/Laterality Comments SECTION 02/25/2019 PROCEDURE: HISTORICAL DELIVERY; COMMENT: [facility]; [place], [place] Medical History Medical History Date Comments [...] RESULTING AGENCY - 12/15/2020 9:35 AM EDT [id number] THINPREP PAP AND CELL BLOCK: NEGATIVE FOR [...] Recently Relevant to Health Maintenance Care Teams Distance Learning Unit Leader Relationship Specialty Start Date End Date Stella Flaherty MD PCP - General 05/05/22
== END 2025-02-15 09:48 | disposition home or self-care (01) ==
LOC: HO.HMCH 09:03
PROVIDERS: PCP Internal Medicine; Visit Provider Internal Medicine
DX: Z00.00 Encounter for general adult medical examination without abnormal findings (principal); R07.89 Other chest pain; D64.9 Anemia, unspecified

== ENCOUNTER 2025-02-15 09:02 | Outpatient (REF) | payer BC, SELFPAY ==
[2025-02-15 11:04] LABS: Reticulocytes Absolute 0.031 X10*6/uL (0.026-0.095)
[2025-02-15 14:03] LABS: Cholesterol 163 mg/dL (<200); HDL Cholesterol 58 mg/dL (>40); Iron 18 mcg/dL (30-160); Percent Iron Saturation 5 % (15-50); Total Iron Binding Capacity 390 mcg/dL (228-428); Triglycerides 44 mg/dL (<150); Unsaturated Iron Binding 372 ug/dL
[2025-02-15 15:25] LABS: Folate 7.3 ng/mL (> or = 4.0); Vitamin B12 875 pg/mL (200-900)
[2025-02-16 10:29] LABS: HBS Num1 1.78 mIU/mL (0-7.99); HBsAGNum1 0.76 S/CO (0.00-0.99); HIV Num 1 0.06 S/CO (0.00-0.99); Hepatitis B Surface Antigen Negative (Negative); ~HepC Num1 0.06 S/CO (0.00-0.79); ~Hepatitis B Surface Antibody NONREACTIVE (Nonreactive); ~Hepatitis C Antibody Nonreactive (Nonreactive)
[2025-02-21 13:08] LABS: Vitamin D 25-OH, D2 <4 ng/mL; Vitamin D 25-OH, D3 26 ng/mL; Vitamin D 25-OH, Total 26 ng/mL (30-100)
== END 2025-02-15 09:03 | disposition home or self-care (01) ==
LOC: HO.LAB 09:02
PROVIDERS: PCP Internal Medicine; Visit Provider Internal Medicine
DX: Z00.00 Encounter for general adult medical examination without abnormal findings (principal); D64.9 Anemia, unspecified; R07.89 Other chest pain
CPT/HCPCS: 36415; 80061; 82306; 82607; 82746; 83036; 83090; 83540; 83921; 84443; 85045; 86706; 86803; 87340; 87389; 96127